=== PATIENT | male | born 1985 | race American Indian/Alaskan Native ===

== ENCOUNTER 2020-02-04 19:11 | Emergency (ER) | payer SELFPAY ==
[2020-02-04] MEDS ORDERED: ASPIRIN 325 MG TAB PO ONE (21:57)
[2020-02-04 22:56] LABS: Hemoglobin 15.7 gm/dl (11.8-15.2); Mean Corpuscular HGB Conc 32 % (32-34); Mean Corpuscular Volume 79 fl (84-94); Platelet Count 247 K/mm3 (140-440); Red Blood Count 6.21 M/mm3 (3.65-5.03); Red Cell Distribution Width 14.3 % (13.2-15.2)
--- NOTE | 2020-02-04 23:04 | XRay Report ---
CHEST 2 VIEWS, 02/04/2020 9:51 PM INDICATION: Chest pain. COMPARISON: None FINDINGS: Support devices: None. Heart: The cardiac silhouette is normal in size. Lungs/pleura: The lungs are clear of focal airspace disease or significant pleural effusion. Additional findings: No significant acute abnormality. IMPRESSION: 1. No evidence of acute cardiopulmonary process. Signer Name: Kiki Barragan MD Signed: 02/04/2020 11:00 PM Workstation Name: [id number]
[2020-02-04 23:15] LABS: BUN/Creatinine Ratio 18; Blood Urea Nitrogen 14 mg/dL (9-20); Calcium 9.6 mg/dL (8.4-10.2); Hemolysis Index 15
[2020-02-05 05:28] LABS: Band Neutrophils # (Manual) 0.1 K/mm3; Total Cells Counted 100
[2020-02-05 05:29] LABS: Target Cells 1+
[2020-02-05 05:30] LABS: Anisocytosis Few; Spherocytes Few
[2020-02-05 05:31] LABS: Platelet Estimate Consistent w Auto
--- NOTE | 2020-02-05 06:14 | Emergency Department Report ---
ED Chest Pain HPI - General Chief Complaint: Chest Pain Stated Complaint: HEADACHE BODY PAIN WEAKNESS Time Seen by Provider: 02/05/20 06:06 Source: patient Mode of arrival: Ambulatory Limitations: No Limitations - History of Present Illness Initial Comments: Patient is a 34-year-old male presents to emergency department for evaluation of diffuse body aches, describing dull, constant, nonradiating but positional discomfort to his lower back, chest, frontal head, and thighs. Patient denies cocaine use or dehydration. Patient denies fever, denies cough, denies sore throat, denies nausea vomiting diarrhea. Patient denies neck pain or stiffness. Severity scale (0 -10): 5 - Related Data Home Medications Medication Instructions Recorded Confirmed Last Taken No Known Home Medications [No 06/23/15 06/23/15 Unknown Reported Home Medications] Allergies Allergy/AdvReac Type Severity Reaction Status Date / Time No Known Allergies Allergy Verified 06/17/15 11:42 Heart Score - HEART Score History: Slightly suspicious EKG: Normal Age: < 45 Risk factors: No known risk factors Troponin: < normal limit HEART Score: 0 - Critical Actions Critical Actions: 0-3 pts:0.9-1.7%risk of adverse cardiac event.Candidate for katja sanon (0) ED Review of Systems ROS: Stated complaint: HEADACHE BODY PAIN WEAKNESS Other details as noted in HPI Comment: All other systems reviewed and negative ED Past Medical Hx - Past Medical History Previous Medical History?: No - Social History Smoking Status: Never Smoker Substance Use Type: None - Medications Home Medications: Home Medications Medication Instructions Recorded Confirmed Last Taken Type No Known Home Medications [No 06/23/15 06/23/15 Unknown History Reported Home Medications] ED Physical Exam - General Limitations: No Limitations General appearance: alert, in no apparent distress - Head Head exam: Present: atraumatic, normocephalic - Eye Eye exam: Present: normal appearance - ENT ENT exam: Present: mucous membranes moist - Neck Neck exam: Present: normal inspection - Respiratory Respiratory exam: Present: normal lung sounds bilaterally. Absent: respiratory distress - Cardiovascular Cardiovascular Exam: Present: regular rate, normal rhythm. Absent: systolic murmur, diastolic murmur, rubs, gallop - GI/Abdominal GI/Abdominal exam: Present: soft, normal bowel sounds - Rectal Rectal exam: Present: deferred - Extremities Exam Extremities exam: Present: normal inspection - Back Exam Back exam: Present: normal inspection - Neurological Exam Neurological exam: Present: alert, oriented X3 - Psychiatric Psychiatric exam: Present: normal affect, normal mood - Skin Skin exam: Present: warm, dry, intact, normal color. Absent: rash ED Course Vital Signs 02/04/20 02/05/20 02/05/20 21:49 05:50 05:52 Temperature 98.6 F Pulse Rate 78 73 73 Respiratory 18 16 Rate Blood Pressure 144/104 O2 Sat by Pulse 96 97 98 Oximetry 02/05/20 05:55 Temperature 98.2 F Pulse Rate Respiratory Rate Blood Pressure O2 Sat by Pulse Oximetry - Reevaluation(s) Reevaluation #1: 02/05/20 06:22 Previous records reviewed, patient admitted overnight 4 years ago for same complaint, cleared by cardiology at that time. Patient is advised he may have infectious illness causing myalgias, recommended follow-up with primary care doctor or outpatient clinic for Covid and influenza testing. Advised rest, hydration, nonsteroidal anti-inflammatory drugs for discomfort. ED Medical Decision Making - Lab Data Result diagrams: 02/04/20 22:34 02/04/20 22:34 Vital Signs 02/04/20 02/05/20 02/05/20 21:49 05:50 05:52 Temperature 98.6 F Pulse Rate 78 73 73 Respiratory 18 16 Rate Blood Pressure 144/104 O2 Sat by Pulse 96 97 98 Oximetry 02/05/20 05:55 Temperature 98.2 F Pulse Rate Respiratory Rate Blood Pressure O2 Sat by Pulse Oximetry Lab Results 02/04/20 02/04/20 02/05/20 Range/Units 22:34 22:34 01:06 WBC 4.7 (4.5-11.0) K/mm3 RBC 6.21 H (3.65-5.03) M/mm3 Hgb 15.7 H (11.8-15.2) gm/dl Hct 49.0 H (35.5-45.6) % MCV 79 L (84-94) fl MCH 25 L (28-32) pg MCHC 32 (32-34) % RDW 14.3 (13.2-15.2) % Plt Count 247 (140-440) K/mm3 [place] % (Auto) Boathouse Keeper Add Manual Diff Complete Total Counted 100 Seg Neuts % (Manual) 34.0 L (40.0-70.0) % Band Neutrophils % 2.0 % Lymphocytes % (Manual) 54.0 H (13.4-35.0) % Monocytes % (Manual) 4.0 (0.0-7.3) % Eosinophils % (Manual) 6.0 H (0.0-4.3) % Nucleated RBC % Not Reportable Seg Neutrophils # Man 1.6 L (1.8-7.7) K/mm3 Band Neutrophils # 0.1 K/mm3 Lymphocytes # (Manual) 2.5 (1.2-5.4) K/mm3 Abs React Lymphs (Man) 0.0 K/mm3 Monocytes # (Manual) 0.2 (0.0-0.8) K/mm3 Eosinophils # (Manual) 0.3 (0.0-0.4) K/mm3 Basophils # (Manual) 0.0 (0.0-0.1) K/mm3 Metamyelocytes # 0.0 K/mm3 Myelocytes # 0.0 K/mm3 Promyelocytes # 0.0 K/mm3 Blast Cells # 0.0 K/mm3 WBC Morphology Not Reportable Hypersegmented Neuts Not Reportable Hyposegmented Neuts Not Reportable Hypogranular Neuts Not Reportable Smudge Cells Not Reportable Toxic Granulation Not Reportable Toxic Vacuolation Not Reportable Dohle Bodies Not Reportable Pelger-Huet Anomaly Not Reportable David Rods Not Reportable Platelet Estimate Consistent w auto Clumped Platelets Not Reportable Plt Clumps, EDTA Not Reportable Large Platelets Not Reportable Giant Platelets Not Reportable Platelet Satelliting Not Reportable Plt Morphology Comment Not Reportable RBC Morphology Not Reportable Dimorphic RBCs Not Reportable Polychromasia Not Reportable Hypochromasia Not Reportable Poikilocytosis Not Reportable Anisocytosis Few Microcytosis Not Reportable Macrocytosis Not Reportable Spherocytes Few Pappenheimer Bodies Not Reportable Sickle Cells Not Reportable Target Cells 1+ Tear Drop Cells Not Reportable Ovalocytes Not Reportable Helmet Cells Not Reportable [address] [place] Bodies Not Reportable [place] Rings Not Reportable [place] Cells Not Reportable Bite Cells Not Reportable Crenated Cell Not Reportable Elliptocytes Not Reportable Acanthocytes (Spur) Not Reportable Rouleaux Not Reportable Hemoglobin C Crystals Not Reportable Schistocytes Not Reportable Malaria parasites Not Reportable Eitan Bodies Not Reportable Hem Pathologist Commnt No Sodium 140 (137-145) mmol/L Potassium 4.5 (3.6-5.0) mmol/L Chloride 103.7 (98-107) mmol/L Carbon Dioxide 25 (22-30) mmol/L Anion Gap 16 mmol/L BUN 14 (9-20) mg/dL Creatinine 0.8 (0.8-1.3) mg/dL Estimated GFR > 60 ml/min BUN/Creatinine Ratio 18 % Glucose 94 (75-100) mg/dL Calcium 9.6 (8.4-10.2) mg/dL Troponin T < 0.010 < 0.010 (0.00-0.029) ng/mL - EKG Data -: EKG Interpreted by Me (Sinus rhythm at [address]-T changes normal QRS) Critical care attestation.: If time is entered above; I have spent that time in minutes in the direct care of this critically ill patient, excluding procedure time. ED Disposition Clinical Impression: Chest pain, Hypertensive disorder Clinical Impression: (Ruled Out): Antibiotic-induced myalgia Disposition: DC-01 TO HOME OR SELFCARE Is pt being admited?: No Condition: Stable Instructions: Nonspecific Chest Pain, Adult, Chest Pain (ED), Hypertension (ED) Referrals: PRIMARY CARE, [Primary Care Provider] - 3-5 Days
[2020-02-05 07:18] VITALS: BP 127/89
== END 2020-02-05 07:54 | disposition home or self-care (01) ==
LOC: ED 19:11
DX: R07.89 Other chest pain (principal); I16.0 Hypertensive urgency
CPT/HCPCS: 36415; 71046; 80048; 84484; 85007; 85025; 93005

== ENCOUNTER 2021-05-22 18:11 | Emergency (ER) | payer SELFPAY | END 2021-05-22 20:30 | disposition left against medical advice (07) | LOC: ED 18:11 | DX: N20.0 Calculus of kidney (principal); Z53.21 Procedure and treatment not carried out due to patient leaving prior to being seen by health care provider ==